=== PATIENT | female | born 1965 | race Caucasian/White ===

== ENCOUNTER → 2017-10-19 | Day surgery (SDC) | payer OTHER ==
[~2017-10-19] VITALS: Ht 167.6 cm; Wt 79.4 kg
--- NOTE | 2017-10-19 21:37 | Operative Report ---
Operative/Inv Procedure Report Surgery Date: 10/19/17 Name of Procedure: Hysteroscopic polypectomy Pre-Operative Diagnosis: Menorrhagia, possible endometrial polyp Post-Operative Diagnosis: Same, pathology pending Estimated Blood Loss: less than 50ml Surgeon/Jewelry Cutter: Haseeb Martinez MD Anesthesia: local monitored anesthesi Specimens: Endometrial polyp and portions of endometrial lining Complications: None Condition: Stable Operative/Procedure Note Note: The patient was taken to the operating room and placed in dorsal supine position. Anesthesia was then obtained without difficulty. She was then placed in dorsal lithotomy position and prepped and draped in the usual sterile fashion. A sterile speculum was then placed in the patient's vagina. A single- tooth tenaculum was applied to the anterior lip of the cervix. The cervix was serially dilated to accommodate the myosure hysteroscope. Survey of the uterine cavity revealed an approximately 1 cm fundal posterior endometrial polyp. The remainder of the uterine cavity and bilateral ostia appeared normal. The polyp was then excised via direct visualization without difficulty. Excellent hemostasis was noted. Portions of the remaining quadrants of the uterus were also sampled and excellent hemostasis was noted. All instruments were then removed from the patient's vagina. Excellent hemostasis again was noted. All counts were reported to be correct 2. The patient was taken to the recovery room in stable condition. Findings: Posterior fundal 1 cm endometrial polyp Discharge Disposition: PACU
== END ==
LOC: STS 02:12
DX: N92.0 Excessive and frequent menstruation with regular cycle (principal); N84.0 Polyp of corpus uteri; Z80.3 Family history of malignant neoplasm of breast; Z80.49 Family history of malignant neoplasm of other genital organs
CPT/HCPCS: 81025; 88305